=== PATIENT | female | born 1955 | race Caucasian/White ===

== ENCOUNTER 2020-06-07 07:55 | Emergency (ER) | payer MEDICARE, SELFPAY ==
--- NOTE | 2020-06-07 08:07 | ED_ITS ---
HPI - CPR General Chief Complaint: Cardiac Arrest/CPR Stated Complaint: unresponsive Time Seen by Provider: 06/07/20 08:07 History of Present Illness HPI narrative: 65 yo female dialysis patient brought in by EMS for cardiac arrest. Found down. Family had last heard from her about 30 minutes prior to finding her. Estimated down time per EMS 10-30 minutes prior to their arrival. No bystander CPR. They found her to be in v-fib. She recieved multiple shocks and doses of epi. She was also given calcium and bicarb. On arrival she continues to be unresponsive with CPR in progress Related Data Allergies Allergy/AdvReac Type Severity Reaction Status Date / Time No Known Allergies Allergy Verified 08/18/11 00:06 Review of Systems Review of Systems: ROS unobtainable: Yes unobtainable due to medical condition [facility] Past Medical History Medical History (Updated 06/07/20 @ 08:22 by Abelino Baum MD) ESRD on dialysis Comments remainder of history unobtainable due to medical condition Exam Const: Other: Unresponsive HENMT: Other: ET tube in place Eyes: Other: Pupils pinpoint and fixed Resp: Other: Bilateral breath sounds with bagging Cardio: Other: No central r peripheral pulses GI: Inspection: non-distended Other: soft Neuro: Other: unresponsive. Extrem: Other: bilateral UE dialysis shunts Course Course Emergency Course: After multiple additional rounds of epinephrine and defib rillation she continued to be in V-fib. At that point she had been down without a perfusing rythym for at least forty minutes and likely more than 1 hour. At this point I felt that there was no possibility of recovery, our efforts were futile. She was declared at 0805 on 06/07/2020. Critical Care Time Critical Care Time Critical Care Time: Yes Total Critical Care Time: 35 Discharge Plan Discharge Clinical Impression: Cardiac arrest with ventricular fibrillation Patient Disposition: Condition: Follow-up/Referrals: PHYSICIAN NOT ON STAFF,NONSTAFF [Primary Care Provider] -
--- NOTE | 2020-06-07 09:45 | PC.NURSE ---
Pt daughter waiting on her sister to get here to decide on a home and to remove body. Sister would like to see pt before moving to [facility]
--- NOTE | 2020-06-07 12:35 | PC.NURSE ---
sisters decided on home: [facility]
== END 2020-06-07 13:29 | disposition expired ==
PROVIDERS: Emergency Provider Emergency Medicine
DX: I49.01 Ventricular fibrillation (principal); I46.9 Cardiac arrest, cause unspecified; N18.6 End stage renal disease; Z99.2 Dependence on renal dialysis
CPT/HCPCS: 92950; 99285; J0171; J0282